=== PATIENT | male | born 1990 | race Caucasian/White ===

== ENCOUNTER 2017-08-14 13:53 | Emergency (ER) | payer SELFPAY ==
[2017-08-14 14:07] VITALS: BP 128/85; TEMP 98.5; O2SAT 98
--- NOTE | 2017-08-14 14:46 | RAD ---
PROCEDURE: Hand,Left 3 Views CLINICAL HISTORY: punched machine, pain 2 3 metacarpal INDICATION: Same as above COMPARISON: None . TECHNIQUE: 3.0 Views of the left hand were done. FINDINGS: There is nondisplaced fracture at the base of the third metacarpal diaphysis. The joint spaces of the hand and the wrist are relatively well-maintained. The bone mineralization is normal for patient's age and sex. The soft tissues are radiographically unremarkable. There is no visualization of any radiopaque foreign bodies in the evaluated soft tissues. If the wrist pain persists, repeat films can be done in 7-10 days interval to rule out occult fractures. Alternatively an MRI of the wrist can be obtained. IMPRESSION: Nondisplaced fracture of the proximal left third metacarpal bone Electronically signed by: Chan Turner MD 08/14/2017 2:45 PM CDT Workstation: [id number]
--- NOTE | 2017-08-14 15:03 | ED.PDOC ---
History of Present Illness - General Chief Complaint: Upper Extremity Injury Stated Complaint: left hand pain Time Seen by Provider: 08/14/17 14:04 Source: patient Exam Limitations: no limitations - History of Present Illness Initial Comments: The patient is a 26-year-old man presenting to the emergency room secondary to hurting his hand after punching a machine accident. The patient is having pain at the base of the third metacarpal. There is no significant laceration. No real deformity. He is neurovascularly intact. Other injuries.he does have a 2 mm abrasion over the distal third knuckle Timing/Duration: 1/2 hour Severity: moderate Improving Factors: nothing Worsening Factors: movement Associated Symptoms: denies symptoms Allergies/Adverse Reactions: Allergies NO KNOWN ALLERGY Allergy (Verified 08/27/14 01:13) Home Medications: Ambulatory Orders Tramadol HCl 50 mg PO Q8HRS PRN #14 tab 08/14/17 Review of Systems - Review of Systems Constitutional: States: no symptoms reported EENTM: States: no symptoms reported Respiratory: States: no symptoms reported Cardiology: States: no symptoms reported Gastrointestinal/Abdominal: States: no symptoms reported Genitourinary: States: no symptoms reported Musculoskeletal: States: see HPI Skin: States: no symptoms reported, see HPI Neurological: States: no symptoms reported Endocrine: States: no symptoms reported All other Systems: No Change from Baseline Past Medical History (General) - Patient Medical History Hx Stroke: No Hx Congestive Heart Failure: No Hx Diabetes: No - Vaccination History Hx Tetanus, Diphtheria Vaccination: Yes Hx Influenza Vaccination: No Hx Pneumococcal Vaccination: No - Social History Hx Tobacco Use: Yes Hx Alcohol Use: Yes Hx Substance Use: No Hx Substance Use Treatment: No - Female History Patient : No Family Medical History - Family History Father Family History: No Known Living Status: Still Living Physical Exam - Physical Exam General Appearance: Alert, Comfortable, No apparent distress Eye Exam: bilateral normal Ears, Nose, Throat: hearing grossly normal, normal ENT inspection, normal pharynx Neck: non-tender, full range of motion, normal inspection Respiratory: no respiratory distress, no accessory muscle use Cardiovascular/Chest: normal peripheral pulses, no edema Peripheral Pulses: radial,right: 2+, radial,left: 2+ Gastrointestinal/Abdominal: other - ild obesity Rectal Exam: deferred Extremity: no pedal edema, no calf tenderness, other - the patient does have some swelling over the left hand. There is tenderness to palpation over the base of the second and third met at carpal's. No real tenderness of the wrist at this point. 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 He appears to have sustained a nondisplaced fracture over the proximal shaft of the third metacarpal of the left hand. He is neurovascularly intact. No realignment as necessary. The patient is being placed in a volar splint to help prevent further injury and to allow for healing. Motrin and Tylenol can be used for discomfort. ER warnings were given for any significant worsening. He does need to follow up with his primary care doctor in 2-3 weeks for reevaluation before resuming activity with that hand. Departure - Departure Clinical Impression: Metacarpal bone fracture Qualifiers: Encounter type: initial encounter Metacarpal bone: third Fracture type: closed Metacarpal location: shaft Fracture alignment: nondisplaced Laterality: left Qualified Code(s): S62.353A - Nondisplaced fracture of shaft of third metacarpal bone, left hand, initial encounter for closed fracture Disposition: Discharge to Home or Self Care Condition: Fair Departure Forms: ED Discharge - Pt. Copy, Patient Portal Self Enrollment Instructions: DI for Hand Pain Diet: regular diet Activity: no pushing/pulling with affected limb Prescriptions: Tramadol HCl 50 mg PO Q8HRS PRN #14 tab PRN Reason: Moderate To Severe Pain Home Medications: Ambulatory Orders Tramadol HCl 50 mg PO Q8HRS PRN #14 tab 08/14/17 Additional Instructions: the patient is a 26-year-old male presenting to the emergency room after having hit a solid object. He appears to have sustained a nondisplaced fracture over the proximal shaft of the third metacarpal of the left hand. He is neurovascularly intact. No realignment as necessary. The patient is being placed in a volar splint to help prevent further injury and to allow for healing. Motrin and Tylenol can be used for discomfort. ER warnings were given for any significant worsening. He does need to follow up with his primary care doctor in 2-3 weeks for reevaluation before resuming activity with that hand.
== END 2017-08-14 15:23 | disposition home or self-care (01) ==
LOC: ER 13:53
DX: S62.353A Nondisplaced fracture of shaft of third metacarpal bone, left hand, initial encounter for closed fracture (principal); Z87.891 Personal history of nicotine dependence; W22.09XA Striking against other stationary object, initial encounter; Y92.9 Unspecified place or not applicable

== ENCOUNTER 2017-10-03 01:25 | Emergency (ER) | payer SELFPAY ==
[2017-10-03] MEDS ORDERED: ALUM & MAG HYDROX-SIMETHICONE 30 ML, LIDOCAINE VISCOUS 2% 15 ML PO ONE ×2 (01:48)
[2017-10-03] MEDS ORDERED: ALUM & MAG HYDROX-SIMETHICONE 30 ML UD ONE (01:52)
[2017-10-03] MEDS ORDERED: LIDOCAINE HCL 2% (MOUTH-THROAT) 15 ML UD ONE (01:52)
--- NOTE | 2017-10-03 02:26 | RAD ---
EXAM DESCRIPTION: Chest,1 View CLINICAL HISTORY: 26 years Male, chest pain COMPARISON: None. FINDINGS: No consolidation. No pneumothorax. No significant pleural effusion. Cardiomediastinal silhouette is unremarkable. Osseous structures are unremarkable. IMPRESSION: No acute findings. Electronically signed by: Joseph Shankar MD 10/03/2017 2:25 AM CDT
[2017-10-03] MEDS ORDERED: ACETAMINOPHEN 325 MG TAB PO ONE (02:40)
--- NOTE | 2017-10-03 02:40 | ED.PDOC ---
History of Present Illness - General Chief Complaint: Chest Pain/OH Stated Complaint: chest pain Time Seen by Provider: 10/03/17 01:30 Source: patient, EMS - History of Present Illness Initial Comments: Xiphoid region CP after smoking marijuana so his friends called EMS. No previous episodes. Timing/Duration: 1 hour Severity/Quality: moderate, sharp Location: other - lower sternal Chest Pain Radiation: no radiation Activities at Onset: rest Prior Chest Pain/Cardiac Workup: no prior chest pain, no prior cardiac workup Improving Factors: nothing Worsening Factors: movement, other - deep breathing or sternal palpation Nitro Today/Relief: no nitro taken today Aspirin Treatment Today: no aspirin today Associated Symptoms: shortness of breath Allergies/Adverse Reactions: Allergies NO KNOWN ALLERGY Allergy (Verified 08/27/14 01:13) Home Medications: Ambulatory Orders Tramadol HCl 50 mg PO Q8HRS PRN #14 tab 08/14/17 Tramadol HCl 50 mg PO Q8HRS PRN #5 tab 10/03/17 Review of Systems - Review of Systems Constitutional: States: no symptoms reported EENTM: States: no symptoms reported Respiratory: States: see HPI Cardiology: States: see HPI Gastrointestinal/Abdominal: States: no symptoms reported Genitourinary: States: no symptoms reported Musculoskeletal: States: no symptoms reported Skin: States: no symptoms reported Neurological: States: no symptoms reported Past Medical History (General) - Patient Medical History Hx Stroke: No Hx Cardiac Disorders: No Hx Congestive Heart Failure: No Hx Hypertension: No Hx Diabetes: No Surgical History: other - Vaccination History Hx Tetanus, Diphtheria Vaccination: Yes Hx Influenza Vaccination: No Hx Pneumococcal Vaccination: No - Social History Hx Tobacco Use: Yes Hx Alcohol Use: Yes Hx Substance Use: Yes - marijuana Hx Substance Use Treatment: No - Female History Patient : No Family Medical History - Family History Mother Living Status: Still Living Hx Family Cancer: Yes Father Family History: No Known Living Status: Still Living Physical Exam - Physical Exam General Appearance: Alert, Comfortable, No apparent distress, Other - never opens his eyes Eyes, Ears, Nose, Throat Exam: other - moist mucosa Neck: full range of motion, supple, normal inspection Respiratory: lungs clear, normal breath sounds, no respiratory distress, no accessory muscle use, other - area is tender to palpation Cardiovascular/Chest: regular rate, rhythm, no edema, no gallop, no JVD, no murmur Gastrointestinal/Abdominal: non tender, soft, no organomegaly Extremity: normal range of motion, normal inspection, no pedal edema Neurologic: alert, normal mood/affect, oriented x 3 Skin Exam: normal color, warm/dry Progress - Progress Progress: 10/03/17 02:39 Says he feels no better. 10/03/17 02:41 Drug screen pending. 10/03/17 06:16 Says he feels no better but has been sleeping since my last visit. 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 HEART score = 2 (low score). RBBB on EKG. V3 was the only lead that changed while here. Will try symptomatic tx. Teaching & precautions given. Return here if it persists. - Results/Orders Results/Orders: Tr negative x 2. - EKG/XRAY/CT EKG: Sinus, RBBB, nonspecific ST T wave Chg XRAY: chest - normal - Additional EKG/XRAY/Consults EKG #2: Sinus, RBBB, no ST T wave changes Departure - Departure Clinical Impression: Chest pain Qualifiers: Chest pain type: chest pain on breathing Qualified Code(s): R07.1 - Chest pain on breathing; R07.81 - Pleurodynia Disposition: Discharge to Home or Self Care Condition: Fair Departure Forms: ED Discharge - Pt. Copy, Patient Portal Self Enrollment Instructions: DI for Chest Pain, Marijuana Use and Addiction Referrals: Geovany Garcia MD [Active Staff] - 10/04/17 Prescriptions: Tramadol HCl 50 mg PO Q8HRS PRN #5 tab PRN Reason: Moderate Pain Home Medications: Ambulatory Orders Tramadol HCl 50 mg PO Q8HRS PRN #14 tab 08/14/17 Tramadol HCl 50 mg PO Q8HRS PRN #5 tab 10/03/17
[2017-10-03 05:12] VITALS: O2SAT 97
[2017-10-03 06:40] VITALS: BP 112/69; TEMP 98.4
== END 2017-10-03 06:40 | disposition home or self-care (01) ==
LOC: ER 01:25
DX: R07.1 Chest pain on breathing (principal); R07.81 Pleurodynia; Z87.891 Personal history of nicotine dependence